=== PATIENT | female | born 1965 ===

== ENCOUNTER 2019-12-28 08:36 | Emergency (ER) | payer MEDICAID ==
[2019-12-28 10:29] LABS: Basophils # (Auto) 0.1 K/mm3 (0.0-0.1); Basophils % (Auto) 0.7 % (0.0-1.8); Eosinophils % (Auto) 0.4 % (0.0-4.3); Hematocrit 38.5 % (30.3-42.9); Hemoglobin 13.1 gm/dl (10.1-14.3); Lymphocytes # (Auto) 0.9 K/mm3 (1.2-5.4); Lymphocytes % (Auto) 12.7 % (13.4-35.0); Mean Corpuscular HGB Conc 34 % (30-34); Mean Corpuscular Volume 96 fl (79-97); Monocytes # (Auto) 0.6 K/mm3 (0.0-0.8); Monocytes % (Auto) 8.6 % (0.0-7.3); Platelet Count 238 K/mm3 (140-440); Red Cell Distribution Width 13.9 % (13.2-15.2)
--- NOTE | 2019-12-28 10:34 | XRay Report ---
CHEST 2 VIEWS INDICATION: Chest Pain. COMPARISON: None. FINDINGS: Support devices: None. Heart: Within normal limits. Pulmonary vasculature: Normal. Lungs/pleura: Lungs are normally expanded and clear. No airspace disease or pleural effusion. No pne umothorax. Additional findings: None. IMPRESSION: 1. Normal chest. Signer Name: Chalino Nunez MD Signed: 12/28/2019 10:30 AM Workstation Name: [id number]
[2019-12-28 10:51] LABS: BUN/Creatinine Ratio 16; Blood Urea Nitrogen 11 mg/dL (7-17); Calcium 9.1 mg/dL (8.4-10.2); Hemolysis Index 9
--- NOTE | 2019-12-28 12:31 | Emergency Department Report ---
ED Chest Pain HPI - General Chief Complaint: Chest Pain Stated Complaint: CHEST PAIN Time Seen by Provider: 12/28/19 11:41 Source: patient Mode of arrival: Ambulatory Limitations: No Limitations - History of Present Illness Initial Comments: 54-year-old female with history of hypertension presents to ED with chest pain since yesterday. Patient reports midsternal, squeezing pain, nonradiating. She denies any associated nausea, vomiting, diaphoresis, leg pain or swelling. Patient reports that shortness of breath. She denies tobacco alcohol or drug use. MD Complaint: chest pain -: days(s) (2) Onset: during rest Pain Location: substernal Pain Radiation: none Severity: moderate Severity scale (0 -10): 7 Quality: squeezing Consistency: constant Improves With: nothing Worsens With: palpation re: dyspnea. denies: nausea, vomting, diaphoresis Other Symptoms: cough. denies: fever, leg swelling - Related Data Previous Rx's Medication Instructions Recorded Last Taken Type Naproxen [Naprosyn] 500 mg PO BID #20 tablet 12/28/19 Unknown Rx Allergies Allergy/AdvReac Type Severity Reaction Status Date / Time JESSICA Inhibitors Allergy Angioedema Verified 12/28/19 08:40 Heart Score - HEART Score History: Slightly suspicious EKG: Normal Age: 45-65 Risk factors: 1-2 risk factors Troponin: < normal limit HEART Score: 2 ED Review of Systems ROS: Stated complaint: CHEST PAIN Other details as noted in HPI Comment: All other systems reviewed and negative Constitutional: denies: chills, fever Respiratory: cough, shortness of breath Cardiovascular: chest pain Gastrointestinal: denies: nausea, vomiting Musculoskeletal: other (denies leg pain and swelling) ED Past Medical Hx - Past Medical History Previous Medical History?: Yes Hx Hypertension: Yes - Surgical History Past Surgical History?: No - Social History Smoking Status: Never Smoker Substance Use Type: None - Medications Home Medications: Home Medications Medication Instructions Recorded Confirmed Last Taken Type Naproxen [Naprosyn] 500 mg PO BID #20 tablet 12/28/19 Unknown Rx ED Physical Exam - General Limitations: No Limitations General appearance: alert, in no apparent distress - Head Head exam: Present: atraumatic, normocephalic - Eye Eye exam: Present: normal appearance, EOMI - ENT ENT exam: Present: mucous membranes moist - Neck Neck exam: Present: normal inspection - Respiratory Respiratory exam: Present: normal lung sounds bilaterally, chest wall tenderness. Absent: respiratory distress, wheezes - Cardiovascular Cardiovascular Exam: Present: regular rate, normal rhythm - GI/Abdominal GI/Abdominal exam: Present: soft. Absent: distended, tenderness - Extremities Exam Extremities exam: Present: normal inspection. Absent: pedal edema, calf tenderness - Neurological Exam Neurological exam: Present: alert, oriented X3 - Psychiatric Psychiatric exam: Present: normal affect, normal mood - Skin Skin exam: Present: warm, dry, intact, normal color. Absent: rash ED Course Vital Signs 12/28/19 12/28/19 12/28/19 08:51 11:26 11:30 Temperature 98.9 F Pulse Rate 69 86 80 Respiratory 16 16 Rate Blood Pressure 128/81 Blood Pressure 123/82 [Left] Blood Pressure 146/91 123/82 [Right] O2 Sat by Pulse 100 100 Oximetry 12/28/19 12/28/19 12/28/19 11:45 12:00 12:15 Temperature Pulse Rate 68 72 71 Respiratory 20 14 17 Rate Blood Pressure 135/85 141/96 149/97 Blood Pressure [Left] Blood Pressure [Right] O2 Sat by Pulse 100 100 100 Oximetry 12/28/19 12/28/19 12/28/19 12:30 12:45 13:00 Temperature Pulse Rate 68 69 74 Respiratory 22 24 22 Rate Blood Pressure 141/86 144/93 153/91 Blood Pressure [Left] Blood Pressure [Right] O2 Sat by Pulse 100 100 Oximetry 12/28/19 12/28/19 12/28/19 13:16 13:30 13:44 Temperature Pulse Rate 84 72 Respiratory 17 10 L 16 Rate Blood Pressure 141/86 139/104 Blood Pressure [Left] Blood Pressure [Right] O2 Sat by Pulse 99 86 Oximetry 12/28/19 12/28/19 12/28/19 13:46 14:00 14:14 Temperature Pulse Rate 75 69 Respiratory 13 19 16 Rate Blood Pressure 139/104 139/104 Blood Pressure [Left] Blood Pressure [Right] O2 Sat by Pulse 100 Oximetry 12/28/19 12/28/19 12/28/19 14:16 14:30 14:46 Temperature Pulse Rate 68 73 72 Respiratory 15 13 24 Rate Blood Pressure 139/104 139/104 139/104 Blood Pressure [Left] Blood Pressure [Right] O2 Sat by Pulse 100 100 100 Oximetry 12/28/19 12/28/19 12/28/19 15:00 15:16 15:30 Temperature Pulse Rate 69 70 72 Respiratory 17 18 19 Rate Blood Pressure 139/104 139/104 139/104 Blood Pressure [Left] Blood Pressure [Right] O2 Sat by Pulse 100 100 100 Oximetry ED Medical Decision Making - Lab Data Result diagrams: 12/28/19 10:16 12/28/19 10:16 - EKG Data -: EKG Interpreted by Ms EKG shows normal: sinus rhythm, axis, intervals, QRS complexes, ST-T waves Rate: normal - EKG Data Interpretation: no acute changes - Radiology Data Radiology results: report reviewed, image reviewed - Medical Decision Making 54-year-old female with chest pain since yesterday. EKG is normal. Troponin negative x3. CTA also negative for PE or any other abnormalities. Patient states she was referred to [facility] by her physician due to history of having this chest pain in the past, however earliest appointment was in February, so she did not book the appointment. Patient will be referred to [facility] for urgent cardiology follow-up. Patient does report relief with Toradol. Prescriptions given. Outpatient follow-up advised. Return precautions given. - Differential Diagnosis Chest wall pain, ACS, PE Critical care attestation.: If time is entered above; I have spent that time in minutes in the direct care of this critically ill patient, excluding procedure time. ED Disposition Clinical Impression: Acute chest pain Disposition: DC-01 TO HOME OR SELFCARE Is pt being admited?: No Condition: Stable Instructions: Chest Pain (ED) Prescriptions: Naproxen [Naprosyn] 500 mg PO BID #20 tablet Referrals: RANJITH DUNN [Other] - 3-5 Days Time of Disposition: 16:45
[2019-12-28] MEDS ORDERED: KETOROLAC 30 MG/1 ML INJ IV ONE (13:05)
[2019-12-28 13:55] VITALS: BP 139/104
--- NOTE | 2019-12-28 16:38 | Cat Scan Report ---
CTA CHEST WITH IV CONTRAST INDICATION: chest pain. TECHNIQUE: Axial CT images were obtained through the chest after injection of 80 mL of Omnipaque 350 IV contrast . 3 plane MIP reconstructions were produced. All CT scans at this location are performed using CT dos e reduction for ALARA by means of automated exposure control. COMPARISON: None available. FINDINGS: Pulmonary Arteries: No pulmonary emboli. Lungs: No significant abnormality. Trachea and Bronchi: No significant abnormality. Heart and Pericardium: No significant abnormality. Vasculature: No significant abnormality. Lymphatics: No lymphadenopathy. Additional Findings: None. Upper Abdomen: No acute findings. Skeletal Structures: No significant osseous abnormality. IMPRESSION: 1. No CT evidence for pulmonary embolism. 2. No acute findings. Signer Name: Tarun Okeefe MD Signed: 12/28/2019 4:33 PM Workstation Name: [id number]
== END 2019-12-28 17:19 | disposition home or self-care (01) ==
LOC: ED 08:36
DX: R07.89 Other chest pain (principal); I10 Essential (primary) hypertension; Z79.899 Other long term (current) drug therapy; Z88.8 Allergy status to other drugs, medicaments and biological substances
CPT/HCPCS: 36415; 71046; 71275; 80048; 84484; 84703; 85025; 85379; 93005; 93010; 96374; 99285; J1885; Q9967